=== PATIENT | male | born 1990 | race Two or more races ===

== ENCOUNTER 2025-01-29 14:00 | Observation (INO) | payer MEDICAID, SELFPAY ==
[2025-01-29 14:01] VITALS: BMI 23.3
[2025-01-29 14:12] VITALS: BP 160/89; PULSE 91; RESP 18; TEMP 37; O2SAT 99
--- NOTE | 2025-01-29 14:42 | EKG_ITS ---
[facility] Test Date: 2025-01-29 Pat Name: GENARO JONES Department: Room: - Gender: Male [employer]: : 1990 Requested By: Raymon Chen Order Number: [id number] Reading MD: Raymon Chen Measurements Intervals [place] Rate: 91 P: 45 SC: 125 QRS: -2 QRSD: 100 T: 37 QT: 387 QTc: 477 Interpretive Statements SINUS RHYTHM LEFT VENTRICULAR HYPERTROPHY AND ST-T CHANGE [VOLTAGE CRITERIA PLUS ST/T ABNORMALITY] No previous ECG available for comparison /store/S0/[id number]
--- NOTE | 2025-01-29 14:44 | PD.EDRME ---
Rapid Medical Screening Exam RME Arrival date/time: 01/29/25 14:00 Chief Complaint: Nausea/Vomiting/Diarrhea Time Seen by Provider: 01/29/25 14:36 Vital signs: Vital Signs Temperature 98.6 F 01/29/25 14:12 Pulse Rate 91 01/29/25 14:12 Respiratory Rate 18 01/29/25 14:12 Blood Pressure 160/89 H 01/29/25 14:12 Pulse Oximetry (%) 99 01/29/25 14:12 Oxygen Delivery Method Room Air 01/29/25 14:12 RME Narrative: This patient is a 34-year-old male who arrives to the ED due to a after receiving advisement from his primary care provider to come in for evaluation of potassium levels. Patient states that he recently had lab work done and the provider notified him that his potassium was low. Patient's recent medical history is significant for valley fever and diabetes. Patient did not look toxic at time of arrival. Patient denied any chest pain. Exam: Unremarkable additional evaluation. Patient was not in distress. Patient denied a chest pain. Patient stated some mild nausea. Clinical Impression: Hypokalemia, valley fever, diabetes
[2025-01-29 15:19] LABS: Lactate (Lactic Acid) 2.1 mMol/L (0.4-2.0)
[2025-01-29 15:43] LABS: Basophils # (Auto) 0.0 Thou/mm3 (0.0-0.2); Basophils % (Auto) 1 % (0-2.5); Eosinophils # (Auto) 0.1 Thou/mm3 (0.0-0.5); Eosinophils % (Auto) 3 % (0-10); Hematocrit 24.3 % (41.0-53.0); Immature Granulocytes Auto 0.01 Thou/mm3 (0.00-0.00); Lymphocytes # (Auto) 1.3 Thou/mm3 (1.0-4.8); Lymphocytes % (Auto) 36 % (10-50); Mean Corpuscular HGB Conc 35.4 g/dl (31.0-37.0); Mean Corpuscular Hemoglobin 28.6 pg (25.0-35.0); Mean Corpuscular Volume 81 fL (80-100); Monocytes # (Auto) 0.4 Thou/mm3 (0.0-0.8); Monocytes % (Auto) 10 % (0-12); Neutrophils # (Auto) 1.8 Thou/mm3 (1.8-7.7); Neutrophils % (Auto) 50 % (37-80); Nucleated Red Blood Cell # 0.00 Thou/mm3 (0.00-0.00); Nucleated Red Blood Cell % 0 /100 WBC (0); Platelet Count 214 Thou/mm3 (140-440); RDW Standard Deviation 45.5 fL (35.1-43.9); Red Blood Count 3.01 Miln/mm3 (4.50-5.90); White Blood Count 3.6 Thou/mm3 (3.8-10.6)
[2025-01-29 15:56] LABS: Hemoglobin 8.6 g/dL (13.5-16.0)
[2025-01-29 16:13] LABS: Anion Gap 11 (7-16); BUN/Creatinine Ratio 9 Ratio (12-20); Blood Urea Nitrogen 18 mg/dL (9-23); Calcium 10.1 mg/dL (8.3-10.6); Carbon Dioxide 32.8 mMol/L (20.0-31.0); Chloride 98 mMol/L (98-107); Creatinine (Component) 2.0 mg/dL (0.6-1.3); Estimated Creatinine Clearance 48.2 mL/min (>60); Glucose 336 mg/dL (74-106); Osmolality,Calculated 298 (275-295); Sodium 142 mMol/L (136-145); Troponin I 0.020 ng/mL (0.0-0.045); eGFR 44 See Note
[2025-01-29 16:46] LABS: Potassium 2.4 mMol/L (3.4-5.1)
--- NOTE | 2025-01-29 17:58 | PD.EDWEAK ---
ED Weakness RME/HPI General Chief complaint: Nausea/Vomiting/Diarrhea Stated complaint: LOW POTASSIUM, WEAKNESS, VOMITING Time Seen by Provider: 01/29/25 14:36 Arrival date/time: 01/29/25 14:00 34-year-old male patient with significant history of HIV, diabetes mellitus, valley fever currently on anti-HIV medication, diabetic medication, and Diflucan, was sent to us by PCP for potassium 2.4. Apparently patient's been complaining of generalized body weakness. Also complaining of on and off diarrhea. Patient denies any vomiting no fever no chest pain no abdominal pain. No medication was taken prior to ER visit. RME / HPI RME / HPI Narrative: This patient is a 34-year-old male who arrives to the ED due to a after receiving advisement from his primary care provider to come in for evaluation of potassium levels. Patient states that he recently had lab work done and the provider notified him that his potassium was low. Patient's recent medical history is significant for valley fever and diabetes. Patient did not look toxic at time of arrival. Patient denied any chest pain. Exam: Unremarkable additional evaluation. Patient was not in distress. Patient denied a chest pain. Patient stated some mild nausea. Impression: Hypokalemia, valley fever, diabetes Related Data Home Medications ?Medication ?Instructions ?Recorded ?Confirmed metformin 1,000 mg tablet 1,000 mg PO BID 07/24/23 07/24/23 atorvastatin 20 mg tablet 20 mg PO DAILY 07/25/23 07/25/23 Allergies Allergy/AdvReac Type Severity Reaction Status Date / Time No Known Allergies Allergy Verified 01/29/25 20:08 Review of Systems Review of Systems Narrative Review of Systems: Review of system reviewed and within normal limits except mentioned in HPI ED Exam Narrative Physical exam: VITAL SIGNS: Reviewed. GENERAL APPEARANCE: Alert and interactive, follows commands, no acute distress, HEAD AND FACE: Non-traumatic. ENT: PERRL, pink conjunctivitis, eyelid no trauma, Mucous membrane moist. NECK: Supple, nontender, no nuchal rigidity. CHEST: No tenderness, no crepitus, no paradoxical movement, no retractions. LUNGS: Clear, well ventilated, symmetric, no rales, no wheezing, no ronchi, no stridor, good breath sounds bilaterally. HEART: Regular rate, regular rhythm, no murmur, no gallops. ABDOMEN: Soft, positive bowel sounds, nondistended, no guarding, nontender, no rebound, no masses, RECTAL: Deferred. GENITAL: Deferred. NEUROLOGICAL: Gross motor function intact sensory function intact, Appropriate for age. MUSCULOSKELETAL: low back nontender, full range of motion. EXTREMITIES: Nontender, full range of motion. SKIN: Color pink, dry, no rash, no lacerations, no abrasions, no contusions. LYMPHATICS: Deferred. Course Quality Measures none Orders Category Date Time Status COVID-19 Screening Questionnaire NOW Care 01/29/25 22:19 Active Decision to Admit X1 Care 01/29/25 22:19 Active EKG (ED ONLY) *Do not use* NOW Care 01/29/25 14:42 Completed EKG (ED Only) Stat Exams 01/29/25 14:42 Draft BMP [Basic Metabolic Panel] Routine Lab 01/29/25 21:01 Completed BMP [Basic Metabolic Panel] Stat Lab 01/29/25 15:03 Completed CBC Stat Lab 01/29/25 15:03 Completed Lactate (Lactic Acid) Stat Lab 01/29/25 15:03 Completed Lactic Acid, 3 HR Stat Lab 01/29/25 18:36 Completed Magnesium Stat Lab 01/29/25 15:03 Received Troponin I Stat Lab 01/29/25 15:03 Completed Ondansetron Odt [Zofran Odt] Med 01/29/25 14:42 Discontinued 4 mg PO X1 ONE POTASSIUM CHL 10 mEq IVPB [Kcl Ivpb] Med 01/29/25 17:54 Discontinued 10 meq in 100 ml IV X1 Potassium Chloride [K-Dur] Med 01/29/25 19:00 Discontinued 20 meq PO X1 ONE Potassium Chloride [K-Dur] Med 01/29/25 17:53 Discontinued 40 meq PO X1 ONE Potassium Chloride [K-Dur] Med 01/29/25 20:03 Discontinued 40 meq PO X1 ONE Ringers Lactated 1000 ml [Lactated Ringers] 1,000 ml Med 01/29/25 17:54 Discontinued IV 999 mls/hr Vital Signs Vital signs: Vital Signs Temperature 98.6 F 01/29/25 14:12 Pulse Rate 91 01/29/25 14:12 Respiratory Rate 18 01/29/25 14:12 Blood Pressure 160/89 H 01/29/25 14:12 Pulse Oximetry (%) 99 01/29/25 14:12 Oxygen Delivery Method Room Air 01/29/25 14:12 Weakness MDM Narrative MDM Narrative:: 34-year-old male patient with significant history of HIV, diabetes mellitus, valley fever currently on anti-HIV medication, diabetic medication, and Diflucan, was sent to us by PCP for potassium 2.4. Apparently patient's been complaining of generalized body weakness. Also complaining of on and off diarrhea. Patient denies any vomiting no fever no chest pain no abdominal pain. No medication was taken prior to ER visit. EKG showed sinus rhythm, ventricular rate of 91 bpm, no ST segment elevation or depression noted. As interpreted by me. Patient CBC showed WBC count of 3.6, hemoglobin of 8.6 hematocrit of 24.3. Initial potassium was noted to be 2.4, creatinine 2.0 Patient received IV fluids 1 L, total of 100 mEq potassium p.o., and potassium IV. Repeat potassium was noted to be 2.6. Spoke with hospitalist, discussed the case, and admitted the patient for persistent hypokalemia and TAWANA, improving Patient data External records reviewed:: None Clinical information provided by:: patient Social determinants that could affect healthcare access:: none Patient has the following chronic illnesses:: HIV, diabetes mellitus, hypercholesterolemia, valley fever currently on Diflucan How is presenting disease/condition affected by chronic disease/condition?: exacerbated by Evaluation data The following diagnostics were reviewed and interpreted by me:: lab results and EKG tracing(s) Lab and/or radiology exams considered but not ordered:: None Interpretation Summary: See above Medications / Prescriptions Medications or Prescriptions considered but not ordered:: None Medication administrations:: Medication Administration History Discontinued Medications Potassium Chloride (Kcl Ivpb) 10 meq in 100 mls @ 100 mls/hr IV X1 ONE Stop: 01/29/25 18:53 Last Infusion: 01/29/25 20:09 Dose: Infused Documented By: Admin: 01/29/25 18:36 Dose: 100 mls/hr Documented By: SHIVAM Lactated Ringer's (Lactated Ringers) 1,000 mls @ 999 mls/hr IV .Q1H1M ONE Stop: 01/29/25 18:54 Last Infusion: 01/29/25 20:09 Dose: Infused Documented By: Admin: 01/29/25 18:36 Dose: 999 mls/hr Documented By: SHIVAM Ondansetron HCl (Ondansetron Odt 4 Mg Tabrap) 4 mg PO X1 ONE; Protocol Stop: 01/29/25 14:43 Last Admin: 01/29/25 16:27 Dose: Not Given Documented By: KIM Non-Admin Reason: Patient Refused Potassium Chloride (Potassium Chloride 20 Meq Tabcr) 40 meq PO X1 ONE Stop: 01/29/25 17:54 Last Admin: 01/29/25 18:35 Dose: 40 meq Documented By: SHIVAM Potassium Chloride (Potassium Chloride 20 Meq Tabcr) 20 meq PO X1 ONE Stop: 01/29/25 19:01 Last Admin: 01/29/25 18:55 Dose: 20 meq Documented By: SHIVAM Potassium Chloride (Potassium Chloride 20 Meq Tabcr) 40 meq PO X1 ONE Stop: 01/29/25 20:04 Last Admin: 01/29/25 20:30 Dose: 40 meq Documented By: SM Potassium, Zofran IV fluids Consultations Consultation(s) initiated? (list below): No Diagnosis Weakness Differential Diagnosis: dehydration and other (Hypokalemia, TAWANA) Most likely diagnosis given after review of the tests above:: Hypokalemia, TAWANA, Admission Indicated Admission indicated?: not indicated Admission Request Was there a request for admission?: Yes Admission Attestation Admission request attestation: Discussed case with Hospitalist service regarding admission. Discussed patients ED course, exam findings, labs, and radiology results. The Hospitalist [agrees,] to accept the patient for admission. Disposition Plan Disposition Plan: Admit Discharge Plan Plan Patient Disposition: Admit Acute Care w/in Hospital Discharge Disposition comment: Stable Prescriptions/Referrals Prescriptions/Med Rec: No Action metformin 1,000 mg Tablet 1,000 mg PO BID atorvastatin 20 mg Tablet 20 mg PO DAILY Referrals: No Primary/Family,Physician [Primary Care Provider] - In 1 week Problem List Clinical Impression: Acute hypokalemia, TAWANA (acute kidney injury), History of HIV infection Patient/Caregiver Discharge Instructions Print Language: Maltese Stand Alone Forms: Krystina Award Info., Patient Portal Info Letter
[2025-01-29 18:08] VITALS: BP 154/89; PULSE 69; RESP 18; O2SAT 100
[2025-01-29 18:17] LABS: Reflex Lactate? Y
[2025-01-29] MEDS: RINGERS LACTATED 1000 ML 1,000 ML 999 ML IV (18:36)
[2025-01-29] MEDS: POTASSIUM CHL 10 mEq IVPB 10 MEQ/100 ML BAG 100 MEQ IV (18:36)
[2025-01-29 18:56] LABS: Lactic Acid, 3 HR 1.2 mMol/L (0.4-2.0)
--- NOTE | 2025-01-29 19:13 | PC.NURSE ---
Patient report received from Joanne ARAUZ, patient is awake and alert, lying in bed at its lowest position with wheels locked and call light at reach. Patient will be admitted to the hospital, patient is infusing Potassium 10 meq IV. Patient care assumed by this Nurse at this time.
[2025-01-29 21:31] LABS: Anion Gap 10 (7-16); BUN/Creatinine Ratio 9 Ratio (12-20); Blood Urea Nitrogen 14 mg/dL (9-23); Calcium 9.7 mg/dL (8.3-10.6); Carbon Dioxide 31.5 mMol/L (20.0-31.0); Chloride 100 mMol/L (98-107); Creatinine (Component) 1.6 mg/dL (0.6-1.3); Estimated Creatinine Clearance 60.2 mL/min (>60); Glucose 203 mg/dL (74-106); Osmolality,Calculated 287 (275-295); Sodium 141 mMol/L (136-145); eGFR 57 See Note
[2025-01-29 21:43] LABS: Potassium 2.6 mMol/L (3.4-5.1)
[2025-01-29 22:29] LABS: Magnesium 1.5 mg/dL (1.6-2.6)
[2025-01-29 22:34] VITALS: BP 157/96; PULSE 73; RESP 18; TEMP 36.9; O2SAT 100
[2025-01-30] VITALS (12 sets, daily range): BP systolic 135–157; BP diastolic 82–97; PULSE 70–84; RESP 16–100; TEMP 36.2–36.8; O2SAT 98–100; BMI 23.6
[2025-01-30] MEDS: RINGERS LACTATED 1000 ML 1,000 ML 999 ML IV (00:34)
--- NOTE | 2025-01-30 00:44 | ESHP_ITS ---
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 He also endorsed a 3-week history of vomiting, his last episode of vomiting was a week ago. He denied hematemesis or diarrhea. The patient presented to [facility] 3-4 weeks ago with chief complaint of hemoptysis where he underwent a bronchoscopy and endoscopy. When asked about the results he mentions that they found no source of bleeding. Patient has a history of HIV that was diagnosed about 2 months ago and since then he has been compliant on Biktarvy. His initial labs showed a viral load of 11,000 that improved to 330 as of 01/09/2025. His CD4 count was reported to be around 180 and was most recently 241 on 01/09/2025 after initiating Biktarvy. He is also currently on Bactrim and fluconazole. He was found to have a potassium of 2.4 and a creatinine of 2.0 on presentation to the ED. Patient was admitted for hypokalemia and TAWANA. ED Course: * Significant vitals on arrival: BP 160/89, remainder vitals within normal limits * Significant labs: Hemoglobin 8.6, hematocrit 24.3, potassium 2.4, bicarb 32.8, creatinine 2.0, BUN 18, magnesium 1.5 * Imaging:EKG showed a sinus rhythm with T waves about 225 ms, no acute ST segment changes * ED intervention: Patient received 100 meq oral potassium, 10 meq IV potassium, 1 gm magnesium, and 2 L of LR. History: * Past medical history: As above in HPI * Surgical history: Noncontributory * Family History: Family history of CKD in mother and brother * Social history: Last sexual encounter was with a male 1 year ago, denies alcohol tobacco or drug use. Allergies: * No known drug allergies Home Medications: (Pending Med Rec) * Biktarvy * Fluconazole * Bactrim * Atorvastatin * Ozempic every Sunday CODE STATUS: Full code Review of Systems Review of Systems Narrative Review of Systems: Review of Systems: * General: Generalized weakness described as being sore. Denies fevers, chills. * HEENT: Denies headache, congestion, or sore throat. * Cardiac: Denies chest pain or palpitations. * Pulmonary: Denies shortness of breath or cough. * GI: 3-week history of vomiting, last episode was a week ago, endorsed constipation as well at the same time, denied hematemesis. Currently denies nausea, vomiting, diarrhea, constipation, melena, or hematochezia. * : Denies dysuria, hematuria, frequency, or urgency. * MSK: Denies pain in the extremities, joints, or myalgias. * Neuro: Denies, numbness, vision changes, or speech difficulty. Exam Vital Signs Temp Pulse Resp BP Pulse Ox O2 Del Method O2 Flow Rate 98.1 F 75 21 H 156/92 H 98 Room Air 98 01/30/25 00:20 01/30/25 00:20 01/30/25 00:20 01/30/25 00:20 01/30/25 00:20 01/30/25 00:20 01/30/25 00:18 Narrative Exam General: Awake and in no acute distress. Conversational and non-toxic appearing. Neurologic: GCS 15. Alert and oriented x3, no gross neurological deficit, and patient able to move all 4 extremities. HEENT: Normocephalic, atraumatic, mucous membranes moist. Pupils reactive to light. Heart: Regular rate and rhythm, normal S1 and S2, no murmurs. Lungs: Clear to auscultation bilaterally with no wheezing or crackles. Abdomen: Soft, nondistended, nontender, positive bowel sounds. No guarding or rebound tenderness. Extremities: No edema. 2+ radial and dorsalis pedis pulses bilaterally. Skin: Warm. Dry. No rash or ecchymoses. Results: Labs 01/31/25 05:40 01/31/25 05:40 Labs: Short CBC 01/29/25 Range/Units 15:03 WBC 3.6 L (3.8-10.6) Thou/mm3 Hgb 8.6 L (13.5-16.0) g/dL Hct 24.3 L (41.0-53.0) % Plt Count 214 (140-440) Thou/mm3 BMP 01/29/25 01/29/25 15:03 21:01 Sodium 142 141 Potassium 2.4 L* 2.6 L* Chloride 98 100 Carbon Dioxide 32.8 H 31.5 H BUN 18 14 Creatinine 2.0 H 1.6 H Glucose 336 H 203 H D Calcium 10.1 9.7 Cardiac Enzymes 01/29/25 Range/Units 15:03 Troponin I 0.020 (0.0-0.045) ng/mL Quality Measures Quality Measures VTE prophylaxis Medications Home Medications and Allergies Home Medications ?Medication ?Instructions ?Recorded ?Confirmed ?Type metformin 1,000 mg tablet 1,000 mg PO BID 07/24/2302/12 History atorvastatin 20 mg tablet 20 mg PO DAILY 07/25/2301/19 History bictegravir 30 mg-emtricitabine 1 tab PO QDAY 01/30/25 01/30/25 History 120 mg-tenofovir alafenam 15 mg tablet (Biktarvy) fluconazole 200 mg tablet 400 mg PO BID 01/30/2501/30 History semaglutide 1 mg/dose (4 mg/3 mL) 1 mg subcut QWEEK 01/30/25 History subcutaneous pen injector (Ozempic) Allergies Allergy/AdvReac Type Severity Reaction Status Date / Time No Known Allergies Allergy Verified 01/29/25 20:08 Visit Medications Acetaminophen (Acetaminophen 325 Mg Tablet) 650 mg PO Q6H PRN PRN Reason: Fever >100.4 Stop: 02/28/25 23:35 Dextrose (Dextrose 50%-Water Inj 50 Ml Syringe) 25 ml IV Q15MIN PRN PRN Reason: BG 50-70 responsive npo pt Stop: 02/28/25 23:43 Dextrose (Dextrose 50%-Water Inj 50 Ml Syringe) 50 ml IV Q15MIN PRN PRN Reason: BG <50 OR BG <70 & pt unresponsive Stop: 02/28/25 23:43 Fluconazole (Fluconazole 100 Mg Tablet) 400 mg PO BID CRESCENCIO Stop: 02/06/25 08:59 Glucagon (Glucagon Inj 1 Mg Vial) 1 mg IM Q15MIN PRN PRN Reason: BG <70, and no IV access Insulin Human Lispro (Insulin Lispro (Admelog) 1 Unit/0.01 Ml Unit) 0 unit SC AC CRESCENCIO; Protocol Stop: 03/01/25 07:29 Trimethoprim/Sulfamethoxazole (Trimethoprim/Sulfa 160/800 Ds Tablet) 1 tab PO BID CRESCENCIO Stop: 02/06/25 08:59 Discontinued Medications Potassium Chloride (Kcl Ivpb) 10 meq in 100 mls @ 100 mls/hr IV X1 ONE Stop: 01/29/25 18:53 Last Infusion: 01/29/25 20:09 Dose: Infused Lactated Ringer's (Lactated Ringers) 1,000 mls @ 999 mls/hr IV .Q1H1M ONE Stop: 01/29/25 18:54 Last Infusion: 01/29/25 20:09 Dose: Infused Magnesium Sulfate/Dextrose (Magnesium Sulfate Ivpb) 1 gm in 100 mls @ 100 mls/hr IV X1 ONE Stop: 01/29/25 23:34 Last Infusion: 01/29/25 23:51 Dose: Infused Lactated Ringer's (Lactated Ringers) 1,000 mls @ 999 mls/hr IV .Q1H1M ONE Stop: 01/30/25 00:34 Last Admin: 01/30/25 00:34 Dose: 999 mls/hr Ondansetron HCl (Ondansetron Odt 4 Mg Tabrap) 4 mg PO X1 ONE; Protocol Stop: 01/29/25 14:43 Last Admin: 01/29/25 16:27 Dose: Not Given Potassium Chloride (Potassium Chloride 20 Meq Tabcr) 40 meq PO X1 ONE Stop: 01/29/25 17:54 Last Admin: 01/29/25 18:35 Dose: 40 meq Potassium Chloride (Potassium Chloride 20 Meq Tabcr) 20 meq PO X1 ONE Stop: 01/29/25 19:01 Last Admin: 01/29/25 18:55 Dose: 20 meq Potassium Chloride (Potassium Chloride 20 Meq Tabcr) 40 meq PO X1 ONE Stop: 01/29/25 20:04 Last Admin: 01/29/25 20:30 Dose: 40 meq Assessment & Plan Plan Summary: 34-year-old male past medical history of HIV on Biktarvy and Bactrim, 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 He also endorsed weakness over the past 2-3 weeks. He was found to have a potassium of 2.4 and a creatinine of 2.0 on presentation to the ED. Patient was admitted for hypokalemia and TAWANA. #Hypokalemia #Hypomagnesemia * Patient presented with a potassium of 2.4, improved to 2.6 after receiving 100 meq p.o. * Patient presented with a magnesium of 1.5, received 1 gm IV magnesium * Potassium likely did not improve adequately due to hypomagnesemia allowing ROMK channels to remain open leading to increased potassium loss * Patient produced almost 3 urinals full of urine output, which may further support this * Patient also had a recent 3-week history of daily vomiting episodes * Loss of HCl via vomiting lead to alkalosis and the kidneys responded by dumping Bicarb, attached to Potassium, into the urine * In addition, volume loss lead to activation of the RAAS system leading to the kidneys excreting more potassium in exchange for sodium Plan: * Will replete potassium and magnesium and follow with labs #TAWANA * Patient presented with a creatinine of 2.0, corrected to 1.6 * Patient received 2 L of LR in the ED * This is likely secondary to dehydration and volume loss from the recent vomiting Plan: * Creatinine is currently trending down, will recheck with morning labs and encourage oral intake and hydration #HIV * Patient was diagnosed with HIV about 2 months ago * Per the patient's lab results on his phone, initial viral load was 11,000 copies that improved to 330 copies as of 01/09/2025 * His CD4 count was initially around 180 and improved to 241 on 01/09/2025 * Patient has been compliant on Biktarvy and takes prophylactic Bactrim indicated for CD4 count of less than 200 Plan: * Will continue Bactrim * Biktarvy not available in hospital, patient is admitted to observation, may be able to take his Biktarvy if he has it on him or consider starting a temporary regimen during his hospital stay * HIV-1 RNA ordered * CD4T count send out ordered #History of coccidiomycosis * Patient takes fluconazole Plan: * Restarted fluconazole 400 mg p.o. twice daily #Nes-vpljmym-rqtdhamfr type 2 diabetes melitis #Hyperglycemia * Patient mentioned that he used to take metformin but switched to Ozempic a few weeks ago * Glucose on arrival was 336 Plan: * Insulin sliding scale * Carb consistent diet #Acute normocytic anemia * Patient presented with a hemoglobin of 8.6 * No sign of active bleeding, may be dilutional Plan: * No direct intervention at this time, continue to monitor Hospital Maintenance: DVT ppx: SCDs Diet: Carb consistent pending swallow screen IV lines: Peripheral IVs Code status: Full code Dispo: Admitted to med/tele observation, correcting hypokalemia and hypomagnesemia. Patient was seen and discussed with my attending physician Dr. Inna MERRITT. Wojciech Lamb DO PGY-1. Attending Provider Attestation/Addendum After examination of the patient and review of the clinical data I feel that this patient needs admission to the hospital for further treatment/evaluation. Plan of care discussed with patient and is in agreement. I Fidel Keith MD, attest that I was physically present for horan portions of evaluation, and examined patient, labs and imagings and plan of care were discussed with IM residents team, and I agree with the findings and plans documented above.
[2025-01-30 02:43] LABS: Potassium 2.8 mMol/L (3.4-5.1)
[2025-01-30 05:16] LABS: Basophils # (Auto) 0.0 Thou/mm3 (0.0-0.2); Basophils % (Auto) 1 % (0-2.5); Eosinophils # (Auto) 0.1 Thou/mm3 (0.0-0.5); Eosinophils % (Auto) 2 % (0-10); Hematocrit 24.0 % (41.0-53.0); Immature Granulocytes Auto 0.00 Thou/mm3 (0.00-0.00); Lymphocytes # (Auto) 1.1 Thou/mm3 (1.0-4.8); Lymphocytes % (Auto) 34 % (10-50); Mean Corpuscular HGB Conc 35.0 g/dl (31.0-37.0); Mean Corpuscular Hemoglobin 28.3 pg (25.0-35.0); Mean Corpuscular Volume 81 fL (80-100); Monocytes # (Auto) 0.3 Thou/mm3 (0.0-0.8); Monocytes % (Auto) 10 % (0-12); Neutrophils # (Auto) 1.7 Thou/mm3 (1.8-7.7); Neutrophils % (Auto) 53 % (37-80); Nucleated Red Blood Cell # 0.00 Thou/mm3 (0.00-0.00); Nucleated Red Blood Cell % 0 /100 WBC (0); Platelet Count 179 Thou/mm3 (140-440); RDW Standard Deviation 47.3 fL (35.1-43.9); Red Blood Count 2.97 Miln/mm3 (4.50-5.90); White Blood Count 3.2 Thou/mm3 (3.8-10.6)
[2025-01-30 05:27] LABS: Hemoglobin 8.4 g/dL (13.5-16.0)
[2025-01-30 05:44] LABS: Alanine Aminotransferase 36 U/L (10-49); Albumin, Serum 3.8 gm/dL (3.5-5.0); Albumin/Globulin Ratio 1.2 (1.2-2.2); Alkaline Phosphatase 112 U/L (46-116); Anion Gap 12 (7-16); Aspartate Amino Transferase 39 U/L (0-34); BUN/Creatinine Ratio 9 Ratio (12-20); Bilirubin,Total 0.3 mg/dL (0.3-1.2); Blood Urea Nitrogen 13 mg/dL (9-23); Calcium 9.4 mg/dL (8.3-10.6); Calcium (Corrected) 9.6 mg/dL (8.5-10.1); Carbon Dioxide 31.8 mMol/L (20.0-31.0); Chloride 98 mMol/L (98-107); Creatinine (Component) 1.5 mg/dL (0.6-1.3); Estimated Creatinine Clearance 64.3 mL/min (>60); Globulin 3.3 gm/dL (2.3-3.5); Glucose 300 mg/dL (74-106); Magnesium 1.6 mg/dL (1.6-2.6); Osmolality,Calculated 294 (275-295); Sodium 142 mMol/L (136-145); Total Protein 7.1 gm/dL (5.7-8.2); eGFR > 60 See Note
[2025-01-30 05:49] LABS: Potassium 2.5 mMol/L (3.4-5.1)
[2025-01-30] MEDS: Magnesium Sulfate 4 GM Ivpb 4 GM/50 ML BAG IV (06:29)
[2025-01-30] MEDS: INSULIN LISPRO (AdmeLOG) 1 UNIT/0.01 ML UNIT SC ×2 (07:26→17:11)
[2025-01-30] MEDS: FLUCONAZOLE 100 MG TABLET 400 MG PO ×2 (08:09→20:21)
[2025-01-30] MEDS: POT PHOS 15 mMol in NS 250 ML 15 MMOL/250 ML BAG 62.5 MMOL IV (08:09)
[2025-01-30] MEDS: TRIMETHOPRIM/SULFA 160/800 DS TABLET 1 TAB PO ×2 (10:15→20:21)
--- NOTE | 2025-01-30 11:16 | ESPR_ITS ---
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 Patient seen and examined at bedside this morning. Appears comfortable and denies any new complaints. States he feels much better compared to presentation. Received multiple doses of potassium repletion . Potassium level improved to 3.2 this evening. Kidney function also slightly improved, creatinine 1.5 from 1.6 yesterday. With patient's severe hypokalemia, we will monitor him overnight. Review of Systems Review of Systems Systems Reviewed: All systems reviewed, normal except as documented Exam Vital Signs Temp Pulse Resp BP Pulse Ox O2 Del Method O2 Flow Rate 97.7 F 83 18 135/97 H 100 Room Air 98 01/30/25 16:00 01/30/25 16:00 01/30/25 16:00 01/30/25 16:00 01/30/25 16:00 01/30/25 16:00 01/30/25 00:18 Narrative GENERAL: Well built male, in no acute distress, laying comfortably on bed HEENT: Normocephalic, atraumatic, extraocular movements intact, pupils equal and reactive to light NECK: Supple, no JVD or bruits. CARDIOVASULAR: RRR, S1 and S2 heard, without murmur, rubs or gallops. LUNGS/CHEST: Clear to auscultation bilaterally. No rails, rhonchi, or wheezing. ABDOMEN: Soft, nontender, with normal bowel sounds. No rebound, rigidity, or guarding. EXTREMITIES: No edema, clubbing or cyanosis. No joint deformity. Able to move all limbs. SKIN: Warm and dry without rashes. NEURO: Alert, awake and oriented x4. Cranial nerves: II through XII grossly intact. normal speech, able to answer questions and follow commands appropriately, strength and sensation normal and equal bilaterally, no focal neurological deficits PSYCHIATRIC: Normal mood and affect. Objective - Hospitalist Labs Diagram: 01/30/25 04:13 01/30/25 15:10 Labs: Laboratory Results - last 24 hr 01/29/25 01/29/25 01/30/25 15:03 21:01 01:48 WBC RBC Hgb Hct MCV MCH MCHC RDW Std Deviation Plt Count Neut % (Auto) Lymph % (Auto) [place] % (Auto) Eos % (Auto) Baso % (Auto) Neut # (Auto) Lymph # (Auto) [place] # (Auto) Eos # (Auto) Baso # (Auto) Immature Gran # (Auto) Absolute Nucleated RBC Immature Gran % Nucleated RBC % Sodium 141 Potassium 2.6 L* 2.8 L Chloride 100 Carbon Dioxide 31.5 H Anion Gap 10 BUN 14 Creatinine 1.6 H Estim Creat Clear Calc 60.2 L eGFR 57 L BUN/Creatinine Ratio 9 L Glucose 203 H D Calculated Osmolality 287 Calcium 9.7 Corrected Calcium Magnesium 1.5 L Total Bilirubin AST ALT Alkaline Phosphatase Total Protein Albumin Globulin Albumin/Globulin Ratio Misc Test Result 01/30/25 01/30/25 04:13 15:10 WBC 3.2 L RBC 2.97 L Hgb 8.4 L Hct 24.0 L MCV 81 MCH 28.3 MCHC 35.0 RDW Std Deviation 47.3 H Plt Count 179 D Neut % (Auto) 53 Lymph % (Auto) 34 [place] % (Auto) 10 Eos % (Auto) 2 Baso % (Auto) 1 Neut # (Auto) 1.7 L Lymph # (Auto) 1.1 [place] # (Auto) 0.3 Eos # (Auto) 0.1 Baso # (Auto) 0.0 Immature Gran # (Auto) 0.00 Absolute Nucleated RBC 0.00 Immature Gran % 0 Nucleated RBC % 0 Sodium 142 Potassium 2.5 L* 3.2 L D Chloride 98 Carbon Dioxide 31.8 H Anion Gap 12 BUN 13 Creatinine 1.5 H Estim Creat Clear Calc 64.3 eGFR > 60 BUN/Creatinine Ratio 9 L Glucose 300 H D Calculated Osmolality 294 Calcium 9.4 Corrected Calcium 9.6 Magnesium 1.6 Total Bilirubin 0.3 AST 39 H ALT 36 Alkaline Phosphatase 112 Total Protein 7.1 Albumin 3.8 Globulin 3.3 Albumin/Globulin Ratio 1.2 Misc Test Result Cancelled Assessment & Plan Patient Synopsis 34-year-old male past medical history of HIV on Biktarvy and Bactrim, 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 He also endorsed weakness over the past 2-3 weeks. He was found to have a potassium of 2.4 and a creatinine of 2.0 on presentation to the ED. Patient was admitted for hypokalemia and TAWANA. #Hypokalemia #Hypomagnesemia * Patient presented with a potassium of 2.4, improved to 2.6 after receiving 100 meq p.o. * Patient presented with a magnesium of 1.5, received 1 gm IV magnesium * Potassium likely did not improve adequately due to hypomagnesemia allowing ROMK channels to remain open leading to increased potassium loss * Patient produced almost 3 urinals full of urine output, which may further support this * Patient also had a recent 3-week history of daily vomiting episodes * Loss of HCl via vomiting lead to alkalosis and the kidneys responded by dumping Bicarb, attached to Potassium, into the urine * In addition, volume loss lead to activation of the RAAS system leading to the kidneys excreting more potassium in exchange for sodium Plan: * Potassium level improved to 3.2 this evening with aggressive repletion * We will continue to monitor and replete as needed #TAWANA * Patient presented with a creatinine of 2.0, corrected to 1.6 * Patient received 2 L of LR in the ED * This is likely secondary to dehydration and volume loss from the recent vomiting Plan: * Creatinine is currently trending down, will recheck with morning labs and encourage oral intake and hydration #HIV * Patient was diagnosed with HIV about 2 months ago * Per the patient's lab results on his phone, initial viral load was 11,000 copies that improved to 330 copies as of 01/09/2025 * His CD4 count was initially around 180 and improved to 241 on 01/09/2025 * Patient has been compliant on Biktarvy and takes prophylactic Bactrim indicated for CD4 count of less than 200 Plan: * Will continue Bactrim * Resumed home Biktarvy * HIV-1 RNA ordered * CD4T count send out ordered #History of coccidiomycosis * Patient takes fluconazole Plan: * Restarted fluconazole 400 mg p.o. twice daily #Onk-yybuaow-skppcugpy type 2 diabetes melitis #Hyperglycemia * Patient mentioned that he used to take metformin but switched to Ozempic a few weeks ago * Glucose on arrival was 336 Plan: * Insulin sliding scale * Carb consistent diet #Acute normocytic anemia * Patient presented with a hemoglobin of 8.6 * No sign of active bleeding, may be dilutional Plan: * No direct intervention at this time, continue to monitor Hospital Maintenance: DVT ppx: SCDs Diet: Carb consistent pending swallow screen IV lines: Peripheral IVs Code status: Full code Time Spent with Patient Time: Total time spent is greater than 50% in coordination of care (as documented) at patient's floor/unit and/or counseling patient: Time with patient: Greater than 35 minutes Reason for Continued Stay Reason for continued stay: further monitoring Quality Measures Quality Measures none
--- NOTE | 2025-01-30 11:41 | PC.SS ---
Hermann Álvarez is a 34 year-old male admitted to [facility] for Hypokalemia. SS conducted bedside contact with the patient to complete initial assessment and to discuss discharge planning. Role and reason explained. Patient confirmed demographic information. Patient identifies his sister Michelle Álvarez [phone] as his surrogate decision maker. Pt states he is able to complete all ADL?s independent. Pt does not possesses any DME. Pts PCP is Arti Mchugh. Pharmacy of choice is [facility]. Discharge options discussed and the pt wishes to return home.? Pt family will provide transport. No further intervention required at this time, rn social services would be available to address any further concerns. DC Plan: Home Contact: Michelle Robbins Address: Confirmed on face sheet PCP: Jeison
[2025-01-30 15:27] LABS: Potassium 3.2 mMol/L (3.4-5.1)
--- NOTE | 2025-01-30 17:25 | PC.NURSE ---
bottle of biktarvy with 10 tablets sent to pharmacy for verification
[2025-01-30] MEDS: ATORVASTATIN CALCIUM 20 MG TABLET PO (20:20)
[2025-01-31] VITALS (9 sets, daily range): BP systolic 136–148; BP diastolic 84–96; PULSE 67–86; RESP 16–99; TEMP 36.4–37.1; O2SAT 99–100
[2025-01-31 06:26] LABS: Basophils # (Auto) 0.0 Thou/mm3 (0.0-0.2); Basophils % (Auto) 1 % (0-2.5); Eosinophils # (Auto) 0.1 Thou/mm3 (0.0-0.5); Eosinophils % (Auto) 4 % (0-10); Hematocrit 25.2 % (41.0-53.0); Hemoglobin 8.9 g/dL (13.5-16.0); Immature Granulocytes Auto 0.01 Thou/mm3 (0.00-0.00); Lymphocytes # (Auto) 1.3 Thou/mm3 (1.0-4.8); Lymphocytes % (Auto) 48 % (10-50); Mean Corpuscular HGB Conc 35.3 g/dl (31.0-37.0); Mean Corpuscular Hemoglobin 28.8 pg (25.0-35.0); Mean Corpuscular Volume 82 fL (80-100); Monocytes # (Auto) 0.3 Thou/mm3 (0.0-0.8); Monocytes % (Auto) 10 % (0-12); Neutrophils # (Auto) 1.0 Thou/mm3 (1.8-7.7); Neutrophils % (Auto) 38 % (37-80); Nucleated Red Blood Cell # 0.00 Thou/mm3 (0.00-0.00); Nucleated Red Blood Cell % 0 /100 WBC (0); Platelet Count 199 Thou/mm3 (140-440); RDW Standard Deviation 47.7 fL (35.1-43.9); Red Blood Count 3.09 Miln/mm3 (4.50-5.90); White Blood Count 2.8 Thou/mm3 (3.8-10.6)
[2025-01-31 06:38] LABS: Alanine Aminotransferase 43 U/L (10-49); Albumin, Serum 4.0 gm/dL (3.5-5.0); Albumin/Globulin Ratio 1.1 (1.2-2.2); Alkaline Phosphatase 118 U/L (46-116); Anion Gap 11 (7-16); Aspartate Amino Transferase 44 U/L (0-34); BUN/Creatinine Ratio 9 Ratio (12-20); Bilirubin,Total 0.3 mg/dL (0.3-1.2); Blood Urea Nitrogen 13 mg/dL (9-23); Calcium 9.2 mg/dL (8.3-10.6); Calcium (Corrected) 9.2 mg/dL (8.5-10.1); Carbon Dioxide 31.1 mMol/L (20.0-31.0); Chloride 100 mMol/L (98-107); Creatinine (Component) 1.5 mg/dL (0.6-1.3); Estimated Creatinine Clearance 64.3 mL/min (>60); Globulin 3.6 gm/dL (2.3-3.5); Glucose 157 mg/dL (74-106); Osmolality,Calculated 286 (275-295); Potassium 3.2 mMol/L (3.4-5.1); Sodium 142 mMol/L (136-145); Total Protein 7.6 gm/dL (5.7-8.2); eGFR > 60 See Note
[2025-01-31] MEDS: RINGERS LACTATED 1000 ML 1,000 ML 125 ML IV ×2 (07:53→15:31)
[2025-01-31] MEDS: FLUCONAZOLE 100 MG TABLET 400 MG PO ×2 (08:09→20:16)
[2025-01-31] MEDS: POTASSIUM CHL 10 mEq IVPB 10 MEQ/100 ML BAG 75 MEQ IV ×2 (08:10→09:08)
[2025-01-31] MEDS: Magnesium Sulfate 2 GM Ivpb 2 GM/50 ML BAG IV (08:35)
[2025-01-31 09:51] LABS: Magnesium 1.8 mg/dL (1.6-2.6); Phosphorous 3.8 mg/dL (2.4-5.1)
--- NOTE | 2025-01-31 10:16 | XR_ITS ---
Examination: Retroperitoneal ultrasound, complete Technique: Multiple high resolution grayscale images of the retroperitoneum obtained, including kidneys and bladder. Exam date and time: January 31, 2025, 1033 hours INDICATIONS: Acute renal insufficiency on laboratory examination today FINDINGS: Right kidney 12.4 cm renal cortex 1.7 cm Left kidney 14.1 cm renal cortex 3.0 cm Mild renal scar formation on the right moderate renal scar formation on the left No hydronephrosis Contracted urinary bladder Normal prostate IMPRESSION: Mild right moderate left renal scar formation, no hydronephrosis or renal calculi
[2025-01-31] MEDS: INSULIN LISPRO (AdmeLOG) 1 UNIT/0.01 ML UNIT SC (11:54)
--- NOTE | 2025-01-31 12:09 | ESPR_ITS ---
<Statement entered by Jose Reyes MD - 01/31/25 13:19> Patient was examined and case was reviewed with team including attending physician. Note reviewed, I agree with most of its contents and agree with the patient's care as documented by Dr. Cheney Patient seen today at the bedside found awake, alert, orientedx3. No overnight events reported. Vitals and labs reviewed. Spoke to the patient she had as his previous labs showed CD4 count of 224. Patient stared on [id number] for PCP prophylaxis. Patient continues with TAWANA we will resume IV fluid hydration at 125 cc/h. Will obtain also renal ultrasound. Case discussed with my attending Dr. Promise Reyes MD PGY-2 Disclaimer: Despite multiple revisions, due to the dictation software being used, the document bellow may not be free of grammatical errors including phonetic/typographic errors. However, this does not deter from our commitment to providing health care in the patient's best interest in mind. Documentation for date of: 01/31/25 Subjective Subjective Interval history: Patient seen at bedside this morning. Reports no complaints. Eating breakfast without difficulty. Denies weakness, tremors, muscle cramps, nausea, or vomiting. States he feels good and back to baseline. No dizziness, palpitations, or chest pain. Exam Vital Signs Temp Pulse Resp BP Pulse Ox O2 Del Method O2 Flow Rate 97.5 F 78 16 148/92 H 100 Room Air 98 01/31/25 07:48 01/31/25 12:00 01/31/25 08:20 01/31/25 07:48 01/31/25 07:48 01/31/25 07:48 01/30/25 00:18 Narrative Exam General: Awake, comfortable, no acute distress HEENT: Mucous membranes moist Cardiac: Regular rate and rhythm, no murmurs Pulmonary: Clear to auscultation bilaterally Abdomen: Soft, non-tender, non-distended Extremities: No edema Neuro: Alert and oriented ?3, no focal deficits Objective Labs 01/31/25 05:40 01/31/25 05:40 Labs: Laboratory Results - last 24 hr 01/30/25 01/31/25 15:10 05:40 WBC 2.8 L RBC 3.09 L Hgb 8.9 L Hct 25.2 L MCV 82 MCH 28.8 MCHC 35.3 RDW Std Deviation 47.7 H Plt Count 199 Neut % (Auto) 38 Lymph % (Auto) 48 [place] % (Auto) 10 Eos % (Auto) 4 Baso % (Auto) 1 Neut # (Auto) 1.0 L Lymph # (Auto) 1.3 [place] # (Auto) 0.3 Eos # (Auto) 0.1 Baso # (Auto) 0.0 Immature Gran # (Auto) 0.01 H Absolute Nucleated RBC 0.00 Immature Gran % 0 Nucleated RBC % 0 Sodium 142 Potassium 3.2 L D 3.2 L Chloride 100 Carbon Dioxide 31.1 H Anion Gap 11 BUN 13 Creatinine 1.5 H Estim Creat Clear Calc 64.3 eGFR > 60 BUN/Creatinine Ratio 9 L Glucose 157 H D Calculated Osmolality 286 Calcium 9.2 Corrected Calcium 9.2 Phosphorus 3.8 Magnesium 1.8 Total Bilirubin 0.3 AST 44 H ALT 43 Alkaline Phosphatase 118 H Total Protein 7.6 Albumin 4.0 Globulin 3.6 H Albumin/Globulin Ratio 1.1 L Quality Measures Quality Measures VTE prophylaxis Assessment & Plan Assessment Current Active Medications: Generic Name Dose Route Start Last Admin Trade Name Freq PRN Reason Stop Dose Admin Acetaminophen 650 mg 01/29/25 23:36 Acetaminophen 325 Mg Tablet PO 02/28/25 23:35 Q6H PRN Fever >100.4 Atorvastatin Calcium 20 mg 01/30/25 21:00 01/30/25 20:20 Atorvastatin Calcium 20 Mg Tablet PO 03/01/25 20:59 20 mg HS CRESCENCIO Administration Biktarvy 30-120-15mg 0 ea 01/30/25 17:15 01/31/25 08:14 Tablet PO 03/01/25 17:14 1 tablet QDAY CRESCENCIO Administration Dextrose 25 ml 01/29/25 23:44 Dextrose 50%-Water Inj 50 Ml Syringe IV 02/28/25 23:43 Q15MIN PRN BG 50-70 responsive npo pt Dextrose 50 ml 01/29/25 23:44 Dextrose 50%-Water Inj 50 Ml Syringe IV 02/28/25 23:43 Q15MIN PRN BG <50 OR BG <70 & pt unresponsive Fluconazole 400 mg 01/30/25 09:00 01/31/25 08:09 Fluconazole 100 Mg Tablet PO 02/06/25 08:59 400 mg BID CRESCENCIO Administration Glucagon 1 mg 01/29/25 23:44 Glucagon Inj 1 Mg Vial IM Q15MIN PRN BG <70, and no IV access Lactated Ringer's 1,000 mls @ 125 mls/hr 01/31/25 07:42 01/31/25 07:53 Lactated Ringers IV 01/31/25 23:41 125 mls/hr .Q8H CRESCENCIO Administration Insulin Human Lispro 0 unit 01/30/25 07:30 01/31/25 11:54 Insulin Lispro (Admelog) 1 Unit/0.01 Ml Unit SC 03/01/25 07:29 2 unit AC CRESCENCIO Administration Protocol Trimethoprim/Sulfamethoxazole 1 tab 01/30/25 09:00 01/31/25 08:15 Trimethoprim/Sulfa 160/800 Ds Tablet PO 02/06/25 08:59 Not Given BID CRESCENCIO Plan 34-year-old male with HIV on ART, 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 # Hypokalemia Severe hypokalemia on admission (K 2.4) due to combined GI losses from prolonged vomiting, metabolic alkalosis with renal potassium wasting, and concurrent hypomagnesemia impairing renal potassium reabsorption. Patient is now asymptomatic with improving levels. Plan: * K 3.2 today (from 2.5 yesterday) * Repleted with 40 mEq PO + 20 mEq IV * Continue telemetry given recent severe hypokalemia * Repeat BMP later today * Maintain K >4 prior to discharge # Hypomagnesemia Initial hypomagnesemia contributed to refractory hypokalemia, now improving with replacement. Plan: * Monitor magnesium daily * Replete as needed to maintain Mg >2 * Avoid discharge with low magnesium to prevent recurrent hypokalemia # Acute Kidney Injury Pre-renal TAWANA from intravascular volume depletion due to prolonged vomiting, with improvement after IV fluids. No evidence of intrinsic renal disease at this time. Plan: * Creatinine 1.5, stable and improved from 2.0 on admission * Continue LR at 125 mL/hr today * Ordered Renal US, pending. * Encourage oral hydration * Trend renal function daily # Metabolic Alkalosis Likely secondary to gastric acid loss from vomiting with renal compensation leading to bicarbonaturia and potassium wasting. Plan: * CO2 31.1, improving * Continue volume repletion * Correct underlying electrolyte disturbances * Monitor BMP # HIV Recently diagnosed HIV with improving viral suppression and immune recovery on ART. Currently asymptomatic from an infectious standpoint. His CD4 count was initially around 180 and improved to 241 on 01/09/2025 Plan: * Continue Biktarvy * Continue Bactrim prophylaxis * Follow HIV viral load and CD4 count # History of Coccidiomycosis Chronic fungal infection, stable on suppressive antifungal therapy without respiratory symptoms. Plan: * Continue fluconazole 400 mg PO BID * Monitor for hepatotoxicity # Type 2 Diabetes Mellitus Non?insulin-dependent diabetes with stress-related hyperglycemia on admission, now improving. Patient mentioned that he used to take metformin but switched to Ozempic a few weeks ago Glucose on arrival was 336 Glucose this morning 157 Plan: * Insulin sliding scale while inpatient * Carb-consistent diet * Resume outpatient regimen at discharge if glucose remains controlled # Chronic normocytic anemia Stable without signs of acute blood loss or hemolysis Likely multifactorial including chronic disease. Plan: * Hgb 8.9, stable * No transfusion indicated * Continue to monitor CBC Health Maintenance: Disposition: Anticipate discharge once potassium and magnesium remain stable Diet: Carb-consistent DVT Prophylaxis: SCDs IV Access: Peripheral IV Code Status: Full code ----- Plan discussed with attending physician Dr. Virgen and senior resident Dr. Kody Cheney MD PGY-1 Internal Medicine Attending Provider Attestation/Addendum I have seen and examined the patient. I was physically present for the horan portions of the services provided including history, physical exam, diagnosis, treatment plans and orders. I agree with assessment and plan of care as documented by residents. Even though this this note was carefully revised there may still be minor errors in rubber compounder due to voice recognition software. Isabel Virgen MD
[2025-01-31] MEDS: TRIMETHOPRIM/SULFA 160/800 DS TABLET 1 TAB PO (20:16)
[2025-01-31] MEDS: ATORVASTATIN CALCIUM 20 MG TABLET PO (20:16)
[2025-01-31] MEDS: MELATONIN 3 MG TABLET 6 MG PO (22:13)
[2025-02-01] VITALS: BP 140/83; PULSE 62; PULSE 71; RESP 18; TEMP 36.8; O2SAT 99
[2025-02-01 04:00] VITALS: BP 129/85; PULSE 61; PULSE 72; RESP 17; TEMP 37.2; O2SAT 100
[2025-02-01 06:55] LABS: Basophils # (Auto) 0.0 Thou/mm3 (0.0-0.2); Basophils % (Auto) 1 % (0-2.5); Eosinophils # (Auto) 0.1 Thou/mm3 (0.0-0.5); Eosinophils % (Auto) 3 % (0-10); Hematocrit 24.4 % (41.0-53.0); Immature Granulocytes Auto 0.00 Thou/mm3 (0.00-0.00); Lymphocytes # (Auto) 1.4 Thou/mm3 (1.0-4.8); Lymphocytes % (Auto) 49 % (10-50); Mean Corpuscular HGB Conc 34.4 g/dl (31.0-37.0); Mean Corpuscular Hemoglobin 28.0 pg (25.0-35.0); Mean Corpuscular Volume 81 fL (80-100); Monocytes # (Auto) 0.3 Thou/mm3 (0.0-0.8); Monocytes % (Auto) 12 % (0-12); Neutrophils # (Auto) 1.0 Thou/mm3 (1.8-7.7); Neutrophils % (Auto) 36 % (37-80); Nucleated Red Blood Cell # 0.00 Thou/mm3 (0.00-0.00); Nucleated Red Blood Cell % 0 /100 WBC (0); Platelet Count 219 Thou/mm3 (140-440); RDW Standard Deviation 47.5 fL (35.1-43.9); Red Blood Count 3.00 Miln/mm3 (4.50-5.90); White Blood Count 2.9 Thou/mm3 (3.8-10.6)
[2025-02-01 06:58] LABS: Hemoglobin 8.4 g/dL (13.5-16.0)
[2025-02-01 07:11] LABS: Alanine Aminotransferase 49 U/L (10-49); Albumin, Serum 4.0 gm/dL (3.5-5.0); Albumin/Globulin Ratio 1.2 (1.2-2.2); Alkaline Phosphatase 109 U/L (46-116); Anion Gap 9 (7-16); Aspartate Amino Transferase 51 U/L (0-34); BUN/Creatinine Ratio 11 Ratio (12-20); Bilirubin,Total 0.3 mg/dL (0.3-1.2); Blood Urea Nitrogen 14 mg/dL (9-23); Calcium 9.2 mg/dL (8.3-10.6); Calcium (Corrected) 9.2 mg/dL (8.5-10.1); Carbon Dioxide 29.6 mMol/L (20.0-31.0); Chloride 102 mMol/L (98-107); Creatinine (Component) 1.3 mg/dL (0.6-1.3); Estimated Creatinine Clearance 74.2 mL/min (>60); Globulin 3.4 gm/dL (2.3-3.5); Glucose 126 mg/dL (74-106); Magnesium 1.7 mg/dL (1.6-2.6); Osmolality,Calculated 283 (275-295); Phosphorous 3.6 mg/dL (2.4-5.1); Potassium 3.1 mMol/L (3.4-5.1); Sodium 141 mMol/L (136-145); Total Protein 7.4 gm/dL (5.7-8.2); eGFR > 60 See Note
[2025-02-01 07:51] VITALS: BP 131/86; PULSE 80; RESP 17; TEMP 36.3; O2SAT 100
[2025-02-01 08:00] VITALS: PULSE 70
[2025-02-01] MEDS: POTASSIUM CHL 10 mEq IVPB 10 MEQ/100 ML BAG 80 MEQ IV ×4 (08:24→11:41)
[2025-02-01] MEDS: FLUCONAZOLE 100 MG TABLET 400 MG PO (08:25)
[2025-02-01 09:06] LABS: Glucose Estimated Average 171 mg/dL (80-131); Hemoglobin A1C 7.6 % Hgb (4.8-6.0)
--- NOTE | 2025-02-01 09:56 | ESDS_ITS ---
Planned Discharge Date 02/01/25 DS: Providers Provider Date of admission: 01/29/25 23:36 Primary care physician: Physician No Primary/Family Admitting Provider: Fidel Keith MD Attending Provider on Admission: Fidel Keith MD Attending Provider on DC: Isabel Virgen MD Discharging Provider: Se Cheney MD DS: Diagnosis Problem List Completed Was Problem List Reviewed/Reconciled?: Yes Hospital Course Hospital Course Hospital course: 34-year-old male with a past medical history significant for HIV on antiretroviral therapy, coccidiomycosis on chronic fluconazole, and type 2 diabetes mellitus who presented to the emergency department after being referred by his primary care provider for severe hypokalemia. He reported a several-week history of vomiting and generalized weakness prior to presentation. Initial laboratory evaluation revealed potassium of 2.4, creatinine of 2.0, metabolic alkalosis, and hypomagnesemia. EKG showed sinus rhythm without acute ischemic changes. The patient was admitted for management of severe hypokalemia and acute kidney injury, felt to be pre-renal in the setting of volume depletion from prolonged gastrointestinal losses. He received aggressive potassium and magnesium repl etion along with intravenous fluids, resulting in gradual improvement of electrolytes and renal function. Potassium improved to the low 3 range with ongoing supplementation, and creatinine downtrended to 1.3 by the time of discharge. Further evaluation included a renal ultrasound, which showed mild right and moderate left renal parenchymal scarring without hydronephrosis or renal calculi, consistent with chronic changes and no evidence of obstruction. Liver function tests remained within normal limits throughout hospitalization. His HIV regimen was continued during admission, including Biktarvy and Bactrim prophylaxis, and fluconazole was resumed for coccidiomycosis. Blood glucose levels improved during hospitalization, and hemoglobin A1c resulted at 7.6%. Given stable glycemic control and improving renal function, insulin was not required at discharge, and the patient was instructed to resume his outpatient Ozempic regimen. By discharge, the patient was asymptomatic, tolerating a regular diet, ambulating without difficulty, and felt back to his baseline. He was discharged home in stable condition with oral potassium and magnesium supplementation and close outpatient follow-up arranged. Diagnosis During admission: # Hypokalemia # Hypomagnesemia # Acute Kidney Injury # Metabolic Alkalosis # HIV # History of Coccidiomycosis # Type 2 Diabetes Mellitus # Chronic normocytic anemia Discharge Instructions: Medications: -Potassium chloride 20 mEq take once daily with food -Magnesium oxide 400 mg take once daily -Biktarvy continue your HIV medication daily -Bactrim continue as prescribed -Fluconazole continue as prescribed -Ozempic continue your weekly injection -Atorvastatin continue as prescribed Diet & Hydration -Drink plenty of fluids daily unless told otherwise -Eat foods rich in potassium, such as Bananas, oranges, avocados, Potatoes or sweet potatoes, Spinach, tomatoes, Beans, lentils, Yogurt or milk Follow-Up -Get blood work (CMP and Magnesium) checked in 5 days -Follow up with your primary care provider within 1 week Go to the emergency room or call your doctor if you develop: -Weakness, muscle cramps, or tremors -Palpitations or irregular heartbeat -Dizziness or fainting -Persistent nausea or vomiting -Decreased urine output ----- Plan discussed with attending physician Dr. Promise Cheney MD PGY-1 Internal Medicine Time Spent with Patient Time attestation: Total time spent providing and/or coordinating discharge services: 32 minutes Time spent: Greater than 30 minutes Exam Vital Signs Temp Pulse Resp BP Pulse Ox O2 Del Method O2 Flow Rate 97.3 F 70 17 131/86 H 100 Room Air 98 02/01/25 07:51 02/01/25 08:00 02/01/25 07:51 02/01/25 07:51 02/01/25 07:51 02/01/25 07:51 01/30/25 00:18 Narrative Exam General: Awake, comfortable, no acute distress HEENT: Mucous membranes moist Cardiac: Regular rate and rhythm, no murmurs Pulmonary: Clear to auscultation bilaterally Abdomen: Soft, non-tender, non-distended Extremities: No edema Neuro: Alert and oriented ?3, no focal deficits Discharge Plan Plan Patient Disposition: HOME (Self Care) Patient condition on transfer: Stable Care Plan Goals: Discharge Instructions: Reason for Hospitalization You were admitted to the hospital because of low potassium levels and dehydration, which affected your kidney function. This was likely related to recent vomiting and not drinking enough fluids. Your levels improved with IV fluids and electrolyte replacement. Recommendations: - Repeat CMP and Magnesium panel within 1 week to check liver function and potassium level. Follow up with your PCP with these results. Medications: -Potassium chloride 20 mEq take every other daily with food (total 7 tablets prescribed) -Magnesium oxide 400 mg take once daily -Biktarvy continue your HIV medication daily -Bactrim continue as prescribed (please confirm dose and frequency with your PCP or infectious disease specialist) -Fluconazole continue as prescribed -Ozempic continue your weekly injection -Atorvastatin continue as prescribed Diet & Hydration -Drink plenty of fluids daily unless told otherwise -Eat foods rich in potassium, such as Bananas, oranges, avocados, Potatoes or sweet potatoes, Spinach, tomatoes, Beans, lentils, Yogurt or milk Follow-Up -Get blood work (CMP and Magnesium) checked in 5 days -Follow up with your primary care provider within 1 week Go to the emergency room or call your doctor if you develop: -Weakness, muscle cramps, or tremors -Palpitations or irregular heartbeat -Dizziness or fainting -Persistent nausea or vomiting -Decreased urine output Prescriptions/Referrals Prescriptions/Med Rec: New sulfamethoxazole-trimethoprim [Bactrim DS] 800-160 mg tablet 1 tab PO QDAY Qty: 30 0RF magnesium oxide 400 mg magnesium capsule 400 mg PO QDAY Qty: 20 0RF potassium chloride [K-Tab] 20 mEq tablet extended release 20 meq PO Q OTHER DAY 14 Days Qty: 7 0RF Continued atorvastatin 20 mg Tablet 20 mg PO DAILY Ozempic 1 mg/dose (4 mg/3 mL) pen injector 1 mg SUBCUT QWEEK Patient Comments: INJECT 1MG SUBCUTANEOUS WEEKLY fluconazole 200 mg tablet 400 mg PO BID Patient Comments: TAKE 2 TABLETS BY MOUTH TWICE A DAY Biktarvy 30-120-15 mg tablet 1 tab PO QDAY Patient Comments: TAKE 1 TABLET BY MOUTH EVERY DAY Discontinued metformin 1,000 mg Tablet 1,000 mg PO BID Referrals: No Primary/Family,Physician [Primary Care Provider] Outpatient Orders (i.e. Home Health, Labs, Imaging): Comprehensive Metabolic Panel (Routine) Location: None Selected Ordered By: Se Cheney Magnesium (Routine) Location: None Selected Ordered By: Se Cheney Patient/Caregiver Discharge Instructions Education Materials: Kidney Failure Tx Options, Kidney Failure Self Care, Acute Kidney Failure Dc, Discharge Instructions for HIV ..., ED Hypokalemia Print Language: Chilean Stand Alone Forms: Krystina Award Info., Patient Portal Info Letter, Work/Release Restrictions Discharge Order Discharge Orders: Discharge (Routine); Ordered 02/01/25 Ordered By: Rachel Frank Quality Discharge Quality Measures VTE prophylaxis Attestestation MD Attestation I have seen and examined the patient. I was physically present for the horan portions of the services provided including history, physical exam, diagnosis, treatment plans and orders. I agree with assessment and plan of care as documented by residents. Even though this this note was carefully revised there may still be minor errors in video control engineer due to voice recognition software. Isabel Virgen MD
[2025-02-01 11:49] VITALS: BP 138/90; PULSE 93; RESP 17; TEMP 36.3; O2SAT 97
[2025-02-01 11:53] VITALS: PULSE 76
[2025-02-03 22:05] LABS: CD19 Percentage 8 % (6-29); CD19, Absolute 87 cells/uL (110-660); CD3 Percentage 80 % (57-85); CD3, Absolute 811 cells/uL (840-3060); CD3-CD16+CD56+ % 11 % (4-25); CD3-CD16+CD56+ (Abs) 117 cells/uL (70-760); CD4 Percentage 24 % (30-61); CD4, Absolute 245 cells/uL (490-1740); CD4/CD8 Ratio 0.44 (0.86-5.00); CD8 Percentage 55 % (12-42); CD8, Absolute 554 cells/uL (180-1170)
[2025-02-03 23:34] LABS: HIV-1 RNA, QN PCR 1740 copies/mL
[2025-02-04 06:24] LABS: HIV-1 RNA, QN PCR Log 3.24
[2025-02-04 06:25] LABS: Lymphocytes, Absolute 1019 cells/uL (850-3900)
== END 2025-02-01 13:40 | disposition home or self-care (01) ==
LOC: SERX 22:21 → SERHOLD 23:47 → S3NX 01-30 00:52
PROVIDERS: Nurse Practitioner Family; Physician Assistant; Student in an Organized Health Care Education/Training Program; Admitting Provider Student in an Organized Health Care Education/Training Program; Emergency Provider Family Medicine; Visit Provider Student in an Organized Health Care Education/Training Program
DX: E87.6 Hypokalemia (principal); E83.42 Hypomagnesemia; N17.9 Acute kidney failure, unspecified; E87.3 Alkalosis; Z21 Asymptomatic human immunodeficiency virus [HIV] infection status; D64.9 Anemia, unspecified; E11.65 Type 2 diabetes mellitus with hyperglycemia; E86.0 Dehydration
CPT/HCPCS: 36415; 76770; 80048; 80053; 83036; 83605; 83735; 84100; 84132; 84484; 85025; 86355; 86357; 86359; 86360; 87536; 93005; 96365; 96366; 99283; G0378; J1815; J3475; J3480; J7120; J7999; A9270